=== PATIENT | male | born 1935 | race Caucasian/White ===

== ENCOUNTER 2018-01-15 07:27 | Day surgery (SDC) | payer OTHER ==
[~2018-01-15] VITALS: Ht 172.7 cm; Wt 98.8 kg
[~2018-01-15 07:27] MED LIST: ANTIVERT25 MG PO; COQ1050 MG PO; COREG6.25 M1 PO; CREON DR 36,001 EACH PO; DEMADEX20 MG PO; ERGOCALCIF50000 UNIT PO; FISH OIL 1,0001 EAC7 PO; LO-DOSE ASPIRIN81 M2 PO; MAGNESIUM400 M1 PO; MIRALAX17 GM PO; NITROSTAT0.4 MG SL; NORCO 5/3251 TABLET PO; NOVOLOG MI100 UNIT/3 SC; PLAVIX75 MG PO; RENAL-VITE TAB0.8 MG PO; ROCALTROL0.25 MCG PO; SYNTHROID200 MCG PO; SYNTHROID25 MCG PO; TRADJENTA5 MG PO; VITAMIN B122500 MCG PO; VITAMIN D5000 UNI1 PO; ZETIA10 MG PO; ZOCOR10 MG PO; ZYLOPRIM300 MG PO
[2018-01-15 08:50] VITALS: BP 197/83
[2018-01-15 14:29] VITALS: BP 146/61
[2018-01-15 14:56] VITALS: BP 165/66
== END 2018-01-15 15:00 | disposition home or self-care (01) ==
LOC: SDC 07:27
PROVIDERS: Ophthalmology
DX: H33.21 Serous retinal detachment, right eye (principal); E11.319 Type 2 diabetes mellitus with unspecified diabetic retinopathy without macular edema; Z79.4 Long term (current) use of insulin; I13.2 Hypertensive heart and chronic kidney disease with heart failure and with stage 5 chronic kidney disease, or end stage renal disease; E11.22 Type 2 diabetes mellitus with diabetic chronic kidney disease; N18.6 End stage renal disease; I50.9 Heart failure, unspecified; Z99.2 Dependence on renal dialysis; Z87.891 Personal history of nicotine dependence; Z79.82 Long term (current) use of aspirin; Z79.02 Long term (current) use of antithrombotics/antiplatelets
CPT/HCPCS: 82948; J0690; J0713; J1815; J2405